=== PATIENT | female | born 1985 | race Caucasian/White ===

== ENCOUNTER 2017-05-22 14:22 | Emergency (ER) | payer SELFPAY ==
[~2017-05-22] VITALS: Ht 165.1 cm; Wt 89.4 kg
[2017-05-22 14:34] VITALS: BP 164/112; PULSE 99; RESP 16; TEMP 99; O2SAT 98
[2017-05-22] MEDS ORDERED: CITA40TA4 PO (14:48)
[2017-05-22] MEDS ORDERED: LISI20TA3 PO (14:48)
[2017-05-22] MEDS ORDERED: PROT40TA PO (14:48)
[2017-05-22] MEDS ORDERED: METO50TA PO (14:48)
[2017-05-22] MEDS ORDERED: METF1000 PO (14:48)
[2017-05-22] MEDS ORDERED: LANTUS2P SQ ×3 (14:48→16:13)
[2017-05-22] MEDS ORDERED: LIDOCAINE 1%/EPINEPHrine 1:100,000 SOLN 20 ML VIAL INFIL ONE (15:15)
[2017-05-22] MEDS ORDERED: LIDOCAINE 1%/EPINEPHrine 1:100,000 SOLN 50 ML VIAL ONE (15:16)
[2017-05-22] MEDS ORDERED: CLIN300C5 PO (16:10)
[2017-05-22] MEDS ORDERED: TYLETAB34 PO (16:10)
--- NOTE | 2017-05-22 16:13 | PD ---
HPI Chief Complaint: Skin Problem Time Seen by Provider: 14:57 Travel History International Travel<30 days: No Contact w/Intl Traveler<30days: No Traveled to known affect area: No History of Present Illness HPI This is a 32-year-old female here with abscess to the left upper abdomen 2 days. She reports she thought the area was an insect bite that has become increasingly more painful and red. She does have a history of abscesses in the past. No fever or chills. No abdominal pain. No nausea or vomiting. Symptom severity is moderate. No aggravating or alleviating factors. Patient is a type II diabetic currently on metformin and Lantus. She reports no change in her Accu-Cheks. She is requesting refill of her Lantus as she does not currently have a PCP due to insurance purposes. PFSH Past Medical History Diabetes: Yes Patient Takes Glucophage: Yes Diminished Hearing: No Hypertension: Yes Medical other: Yes (FREQUENT HAIR FOLLICLES INFECTION) Reproductive: Yes (POLYSYSTIC OVARIAN DX) Tetanus Vaccination: < 5 Years ?: Not LMP: 05/22/17 Dilation and Curettage (D&C): Yes (TIMES 2) Past Surgical History Appendectomy: Yes Tonsillectomy: Yes Social History Alcohol Use: No Tobacco Use: Yes (2 CIGS PER DAY) Substance Use: No Allergies-Medications (Allergen,Severity, Reaction): Coded Allergies: Sulfa (Sulfonamide Antibiotics) (Verified Allergy, Unknown, 05/22/17) doxycycline (Verified Allergy, Unknown, 05/22/17) duloxetine (Verified Allergy, Unknown, 05/22/17) naproxen (Verified Allergy, Unknown, 05/22/17) nifedipine (Verified Allergy, Unknown, 05/22/17) Reported Meds & Prescriptions Reported Meds & Active Scripts Active Lantus Inj (Insulin Glargine) 1,000 Unit/10 Ml Vial 10 Units SQ HS Tylenol-Codeine #3 (Acetaminophen-Codeine) 300-30 mg Tab 1 Tab PO Q6H PRN Clindamycin (Clindamycin HCl) 300 Mg Cap 300 Mg PO Q6H 10 Days Reported Lantus Inj (Insulin Glargine) 1,000 Unit/10 Ml Vial 40 Units SQ BID Lantus Inj (Insulin Glargine) 1,000 Unit/10 Ml Vial 40 Units SQ BID Lisinopril-Hctz 20-25 Mg Tab 1 Tab PO DAILY Protonix (Pantoprazole Sodium) 40 Mg Tab 40 Mg PO DAILY Citalopram (Citalopram Hydrobromide) 40 Mg Tab 40 Mg PO DAILY Metoprolol Tartrate 50 Mg Tab 50 Mg PO BID Metformin (Metformin HCl) 1,000 Mg Tab 1,000 Mg PO BIDPC Review of Systems Except as stated in HPI: all other systems reviewed are Neg General / Constitutional: No: Fever Eyes: No: Visual changes HENT: No: Headaches Cardiovascular: No: Chest Pain or Discomfort Respiratory: No: Shortness of Breath Gastrointestinal: No: Abdominal Pain Genitourinary: No: Dysuria Physical Exam Narrative GENERAL: Alert and well-appearing 32-year-old female SKIN: 3x3 centimeter area of induration and erythema to the left upper abdomen below the left breast. The area has a small central pustule with no drainage. HEAD: Normocephalic. EYES: No injection or drainage. NECK: Supple CARDIOVASCULAR: Regular rate and rhythm RESPIRATORY: Breath sounds equal bilaterally. No accessory muscle use. GASTROINTESTINAL: Abdomen soft, non-tender, nondistended. No rebound or guarding MUSCULOSKELETAL: No cyanosis, or edema. BACK: No CVA tenderness. Data Data Last Documented VS Vital Signs Date Time Temp Pulse Resp B/P (MAP) Pulse Ox O2 Delivery O2 Flow Rate FiO2 05/22/17 14:34 99.0 99 16 164/112 (129) 98 Orders Orders Lidocai-Epi 1%-1:100,000 Inj (Xylocaine- (05/22/17 15:15) Lidocai-Epi 1%-1:100,000 Inj (Xylocaine- (05/22/17 15:16) Clindamycin (Cleocin) (05/22/17 16:15) Acetamin-Codeine 300-30 Mg (Tylenol-Code (05/22/17 16:15) Ed Discharge Order (05/22/17 16:14) MDM Medical Decision Making Medical Screen Exam Complete: Yes Emergency Medical Condition: Yes Differential Diagnosis Abscess, cellulitis, folliculitis Narrative Course 32-year-old female here with abscess to her left upper abdomen. Incision and drainage was performed. Patient tolerated procedure well. She is nontoxic appearing. Vital signs are stable. She is stable and ready for discharge. Procedures Procedure Narrative INCISION AND DRAINAGE OF ABSCESS: The area was prepped and was sterilely draped. A subcutaneous wheal of 1 % Xylocaine with epi with a total number [-2 ] mL was used to anesthetize the area properly. A number 11 scalpel was used to make a 0.5 -cm incision across the area of the abscess. The abscess was drained, complex loculations were broken down, and irrigated with normal saline. Quarter inch iodoform packing was placed in the wound. Sterile dressing applied. Patient advised to have packing removed in two days. Diagnosis Primary Impression: Abscess Referrals: Primary Care Physician Additional Instructions: Antibiotics as directed. Change the dressing daily. Packing needs to be removed in 1-2 days. Scripts Insulin Glargine Inj (Lantus Inj) 1,000 Unit/10 Ml Vial 10 UNITS SQ HS for Blood Sugar Management, #1 VIAL 0 Refills Prov: Charlene Gee 05/22/17 Acetaminophen-Codeine (Tylenol-Codeine #3) 300-30 mg Tab 1 TAB PO Q6H Y for PAIN, #8 TAB 0 Refills Prov: Charlene Gee 05/22/17 Clindamycin (Clindamycin) 300 Mg Cap 300 MG PO Q6H for Infection for 10 Days, #40 CAP 0 Refills Prov: Charlene Gee 05/22/17 Disposition: 01 DISCHARGE HOME Condition: Stable Charlene Gee May 22, 2017 16:13
[2017-05-22] MEDS ORDERED: CLINDAMYCIN 150 MG CAP PO ONE (16:15)
[2017-05-22] MEDS ORDERED: ACETAMINOPHEN/CODEINE 300 MG/30 MG TAB PO ONE (16:15)
== END 2017-05-22 17:08 | disposition home or self-care (01) ==
LOC: PHEFT 14:22
DX: L02.211 Cutaneous abscess of abdominal wall (principal); E11.9 Type 2 diabetes mellitus without complications; I10 Essential (primary) hypertension; F17.200 Nicotine dependence, unspecified, uncomplicated
CPT/HCPCS: 10061